=== PATIENT | female | born 1965 | race Caucasian/White ===

== ENCOUNTER 2019-04-09 08:53 | Emergency (ER) | payer BC ==
--- OUTSIDE RECORDS SUMMARY | 2019-04-09 09:00 | XMS REPORT | Continuity of Care Document ---
:1965 External Reference #:[id number] Author Name RUBIA Andres (transmitted by agent of provider Thom [facility]) Address [address] [address] Care Team Providers Name Role Phone Liliane Waddell NP - Family Care Team Information Family Services Worker [phone] Problems Active Problems Provider Date Asthma without status asthmaticus Liliane Waddell NP Onset: 07/14/2014 Allergy Onset: 07/09/2012 Herpes simplex Onset: 07/08/2011 Essential hypertension Onset: 05/18/2011 Allergic rhinitis due to pollen Thom [facility] MD Onset: 03/08/2017 Allergic rhinitis Thom Strauss MD Onset: 03/08/2017 Uncomplicated moderate persistent Thom Strauss MD Onset: 03/08/2017 asthma Mild intermittent asthma RUBIA Andres Onset: 03/29/2017 Social History Type Date Description Comments Sex Unknown Tobacco Use Start: Unknown End: Unknown Quit Smoking Status Reviewed: 04/08/19 Quit Tobacco Use Start: Unknown End: Unknown Patient is a former smoker Allergies, Adverse Reactions, Alerts Description No Known Drug Allergies Medications Active Medications SIG Qnty Indications Ordering Provider Date Ragwitek dissolve one 30tabs J30.1 Thom Hernandez 11/14/2018 12Amb A tablet under the MD Carlos A 1-U Tablets Sub tongue daily. do not eat or drink for 5 minutes following administration. Auvi-Q use as directed 2units Thom Hernandez 09/04/2018 0.3mg/0.3ML MD Carlos A Solution Auto-Inject Nasonex spray 2 puffs 3units J30.1 Thom Hernandez 03/08/2017 50mcg/Act into each nostril MD Carlos A Suspension once daily. Valtrex 1 twice a day as 20tabs Liliane Waddell NP 07/28/2014 500mg needed x 2 days Tablets Advair Diskus 1 inhalation 60units R05 Liliane Waddell NP 11/04/2013 twice daily 100-50mcg/Dose Aerosol Lisinopril take 1 tablet 90tabs I10 Liliane Waddell NP 06/07/2011 5mg daily Tablets Benadryl Allergy & 1-2 tabs po prn 60tabs Unknown Sinus Headache 12.5-5-325mg Tablets Mirena (52 MG) implant Unknown 20mcg/24HR IUD Immunizations CPT Code Status Date Vaccine Lot # [id number] Given 07/14/2014 Tetanus, Diphtheria Toxoids/Acellular Pertussis Vaccine 7 [place] > [id number] Given 03/04/2014 Fluarix Quadrivalent, Preservative Free 0.5mL Vital Signs Date Vital Result Comment 04/08/2019 9:12am BP Systolic 110 mmHg BP Diastolic 76 mmHg Height 66 inches 5'6" Weight 190.00 lb BMI (Body Mass Index) 30.7 kg/m2 Heart Rate 71 /min Respiratory Rate 16 /min Body Temperature 97.0 F O2 % BldC Oximetry 95 % 11/14/2018 3:00pm BP Systolic 115 mmHg BP Diastolic 76 mmHg Height 66 inches 5'6" Weight 192.00 lb BMI (Body Mass Index) 31.0 kg/m2 Heart Rate 72 /min Respiratory Rate 18 /min Body Temperature 97.6 F O2 % BldC Oximetry 96 % Results Test Acquired Date Facility Test Result H/L Range Note Order 04/08/2019 [facility] Nitric Oxide <pending> PFT Supplies <pending> PFT With Bronchodilator <pending> Order 11/14/2018 [facility] Challenge-Medication < pending> Procedures Date Code Description Status 04/08/2019 15638 Nitric Oxide Gas Determination Completed 04/08/2019 98392 Bronchodilation Responsiveness Spirometry Pre/Post Completed Bronchodil Adm 11/14/2018 67797 Ingestion Challenge Test Sequential & Incremental Completed Medical Devices Description No Information Available Encounters Type Date Location Provider Dx Diagnosis Office Visit 04/08/2019 Rosalba Lin J45.20 Mild intermittent 9:00a [place], asthma, uncomplicated [facility]-C J30.1 Allergic rhinitis due to pollen J30.89 Other allergic rhinitis Office Visit 11/14/2018 3:00p [place] Jane Shook. [place], J30.1 Allergic rhinitis [facility]PA-C due to pollen J30.89 Other allergic rhinitis J45.40 Moderate persistent asthma, uncomplicated Assessments Date Code Description Provider 04/08/2019 J45.20 Mild intermittent asthma, Jane S. [place], [facility] uncomplicated 04/08/2019 J30.1 Allergic rhinitis due to pollen Jane S. [place], RPA -C 04/08/2019 J30.89 Other allergic rhinitis Jane S. [place], RPA-C 11/14/2018 J30.1 Allergic rhinitis due to pollen Jane S. [place], RPA -C 11/14/2018 J30.89 Other allergic rhinitis Jane S. [facility], RPA-C 11/14/2018 J45.40 Moderate persistent asthma, Jane S. [facility], RPA-C uncomplicated Plan of Treatment Future Appointment(s):07/08/2019 8:30 am - Jane S. [facility], [facility] at [facility]/08/2019 - Jane S. [facility], RPA-CJ45.20 Mild intermittent asthma , uncomplicatedComments:Patient with mild, intermittent seasonal asthma. Today' s PFT is within normal limits. NIOX is 30ppb.Patient to trial off Advair for the winter months. If asthma symptoms return, Madi has been advised to restart Advair.Follow up:July 2019 - w/NIOX prior to sajvkD80.1 Allergic rhinitis due to pollenComments:Patient with significant improvement in her seasonal allergy symptoms since starting sublingual immunotherapy. Patient has tolerated both Grastek and Ragwitek without side effects or systemic allergic reactions. I will discontinue Ragwitek today, and plan to restart Grastek in July. Continue Nasonex as prescribed.Follow up:July 2019 - Restart Grastek SLITJ30.89 Other allergic rhinitis Functional Status Description No Information Available Mental Status Description No Information Available Referrals Description No Information Available
[2019-04-09 09:12] VITALS: BP 151/82
--- NOTE | 2019-04-09 10:26 | UC ---
Back Pain HPI - HPI Summary HPI Summary: 53 yo who fell at the gym this morning. 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 Hard floor with a soft mat. Had difficulty arising from the floor. Has used ibuprofen 400mg this morning. Ongoing pain with movement and sitting. No parestheias or leg weakness. Has never had a fracture, has never had bone density test. - History of Current Complaint Chief Complaint: UCGeneralIllness Stated Complaint: TAILBONE INJURY Time Seen by Provider: 04/09/19 10:24 Hx Obtained From: Patient Hx Last Menstrual Period: iud Onset/Duration: Sudden Onset, Lasting Hours Timing: Constant Severity Initially: Moderate Severity Currently: Moderate Pain Intensity: 7 Back Pain: Is Discrete @ - left low back and gluteal area. Character: Aching Aggravating Factor(s): Movement, Bending, Walking Alleviating Factor(s): Rest, Position - prefers standing Associated Signs And Symptoms: Negative: Bruising, Weakness, Numbness, Tingling - Risk Factors AAA Risk Factors: Hypertension TAD Risk Factors: Hypertension Cauda Equina Risk Factors: Negative Epidural Abscess Risk Factors: Negative - Allergies/Home Medications Allergies/Adverse Reactions: Allergies Allergy/AdvReac Type Severity Reaction Status Date / Time No Known Allergies Allergy Verified 04/09/19 09:12 PMH/Surg Hx/FS Hx/Imm Hx Cardiovascular History: Hypertension - Surgical History Surgical History: None - Family History Known Family History: Positive: Non-Contributory - Social History Occupation: Employed Full-time Lives: With Family Alcohol Use: Occasionally Substance Use Type: None Smoking Status (MU): Never Smoked Tobacco Review of Systems All Other Systems Reviewed And Are Negative: Yes Constitutional: Positive: Negative Skin: Positive: Negative Eyes: Positive: Negative ENT: Positive: Negative Respiratory: Positive: Negative Cardiovascular: Positive: Negative Gastrointestinal: Positive: Negative Genitourinary: Positive: Negative, Other - amenorrheic with an IUD in place. Motor: Positive: Decreased ROM Musculoskeletal: Positive: Myalgia Neurological: Positive: Negative Psychological: Positive: Negative Is Patient Immunocompromised?: No Physical Exam Triage Information Reviewed: Yes Appearance: Well-Appearing, Pain Distress - moderately uncomfortable. Vital Signs: Initial Vital Signs Temp 97.8 F 11/05/19 09:09 Pulse 53 04/09/19 09:09 Resp 16 04/09/19 09:09 BP 151/82 04/09/19 09:09 Pulse Ox 100 04/09/19 09:09 Eyes: Positive: Conjunctiva Clear ENT: Positive: Normal ENT inspection Respiratory: Positive: Lungs clear, Normal breath sounds Cardiovascular: Positive: RRR, No Murmur Musculoskeletal Exam: Other - No tenderness to palpation in the lumbar spine, sacrum, coccyx. Tender over left upper gluteal area and paraspinals of the low back. Flat lordotic curver Musculoskeletal: Positive: ROM Intact, ROM Limited @ - lumbar spine with flexion to 90 degrees, normal extension, decreased lateral bending both right and left. Can heel and toe walk. Full rom in both hips, SLR to 90 degrees bilaterall. Neurological: Positive: Alert, Muscle Tone Normal Psychological Exam: Normal Skin Exam: Normal Back Pain Course/Dx - Course Course Of Treatment: brief use of naproxen for pain, ice and heat, stretching. No bony tenderness to indicate imaging studies. - Differential Dx/Diagnosis Differential Diagnosis/HQI/PQRI: Cauda Equina Syndrome, Fracture, Herniated Disc , Strain, Sprain Provider Diagnosis: Contusion, Low back strain Discharge ED - Sign-Out/Discharge Documenting (check all that apply): Patient Departure All imaging exams completed and their final reports reviewed: No Studies - Discharge Plan Condition: Stable Disposition: HOME Patient Education Materials: Low Back Strain (ED) Referrals: Liliane Waddell NP [Primary Care Provider] - Additional Instructions: Use Aleve (naproxen) 220mg, taking 2 tablets every 12 hours for control of pain. Begin with use of ice over the sore area, with alternating heat later today. Stretch your low back with cat and cow postures. Anticipate up to a week of pain, with gradual improvement. - Billing Disposition and Condition Condition: STABLE Disposition: Home
== END 2019-04-09 10:55 | disposition home or self-care (01) ==
LOC: UCEAST 08:53
DX: S39.012A Strain of muscle, fascia and tendon of lower back, initial encounter (principal); S30.0XXA Contusion of lower back and pelvis, initial encounter; I10 Essential (primary) hypertension; Z97.5 Presence of (intrauterine) contraceptive device; W19.XXXA Unspecified fall, initial encounter; Y92.39 Other specified sports and athletic area as the place of occurrence of the external cause
CPT/HCPCS: 99211; G0463